=== PATIENT | male | born 1960 | race Caucasian/White ===

== ENCOUNTER 2017-02-18 18:47 | Emergency (ER) ==
[2017-02-18 18:55] VITALS: BP 106/71; TEMP 98.3; BMI 26.6
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
[2017-02-18] MEDS ORDERED: NORCO 7.5-325 PO STA (19:01)
--- NOTE | 2017-02-19 07:41 | DI ---
EXAM: Three views of the right hand HISTORY: The right hand injury. COMPARISON: None FINDINGS: There is anterior angulation. Cortical irregularity of the distal fifth metacarpal. No a dditional displaced fracture or cortical irregularity is identified. The joint spaces are maintaine d. The soft tissues are unremarkable. There is no lytic or blastic lesion. IMPRESSION: Anterior angulation and cortical disruption of the distal fifth metacarpal consistent w ith an age indeterminate fifth metacarpal fracture.
== END 2017-02-18 19:22 | disposition home or self-care (01) ==
LOC: ED 18:47
DX: S62.316A Displaced fracture of base of fifth metacarpal bone, right hand, initial encounter for closed fracture (principal); W20.8XXA Other cause of strike by thrown, projected or falling object, initial encounter; F17.210 Nicotine dependence, cigarettes, uncomplicated
CPT/HCPCS: 99282